=== PATIENT | male | born 1995 | race African-American/Black ===

== ENCOUNTER 2017-09-10 16:40 | Emergency (ER) | payer MEDICAID ==
[~2017-09-10] VITALS: Ht 182.9 cm; Wt 113.4 kg
[2017-09-10] MEDS ORDERED: Methocarbamol 500mg tab ORAL ONE (17:30)
[2017-09-10 18:14] LABS: APPEARANCE,URINE CLEAR; BILIRUBIN, URINE NEGATIVE (NEGATIVE); GLUCOSE, URINE (UA) NEGATIVE (NEGATIVE); KETONES,URINE 1+ (NEGATIVE); LEUKOCYTE ESTERASE ,URINE 1+ (NEGATIVE); NITRITE,URINE NEGATIVE (NEGATIVE); PH,URINE 6 (4.5-8.0); PROTEIN,URINE 1+ (NEGATIVE); UROBILINOGEN,URINE 4 MG/DL (0.0-1.0)
[2017-09-10 18:17] LABS: COLOR,URINE YELLOW
--- NOTE | 2017-09-10 18:18 | Emergency Room Report ---
History of Present Illness General Chief Complaint: Back Pain-No Injury Source: Patient Present Illness HPI 21-year-old male patient presents ER complaining of low back pain for the past week. Denies recent injury. Denies radiation of symptoms. Denies bowel or bladder incontinence. Denies fever, chest pain, shortness of breath. Denies history of kidney stones. Also complains of right lower quadrant abdominal pain that is occurs with movement. Denies. Denies dysuria, hematuria. Denies penile discharge. Denies penile pain or testicular pain or swelling. Denies other acute symptoms. Denies fever, chest pain, shortness of breath. Denies recent sexual activity. Allergies: Coded Allergies: No Known Allergies (Unverified , 09/10/17) Patient History Reviewed Nursing Documentation: PMH: Agreed; PSxH: Agreed Nursing Documentation-PMH Past Medical History: No Stated History Review of Systems All Other Systems: negative except mentioned in HPI Physical Exam Vital Signs Date Time Temp Pulse Resp B/P (MAP) Pulse Ox O2 Delivery O2 Flow Rate FiO2 09/10/17 16:52 97.6 77 18 125/78 97 Room Air 97.5 Sp02 EP Interpretation: reviewed, normal General Appearance: well appearing, no apparent distress, alert, GCS 15, non- toxic Head: normocephalic, atraumatic Eyes: bilateral eye normal inspection, bilateral eye PERRL ENT: hearing grossly normal, normal pharynx, no angioedema, normal voice, uvula midline, moist mucus membranes Neck: full range of motion Respiratory: lungs clear, normal breath sounds, no rhonchi, no respiratory distress, no accessory muscle use, no wheezing, speaking full sentences Cardiovascular #1: regular rate, rhythm, no edema Gastrointestinal: non tender, soft, no mass, non-distended, no guarding, no rebound, other - negative Rovsing, negative obturator, negative heel strike Genitourinary: no CVA tenderness Musculoskeletal: back normal, digits/nails normal, gait/station normal, normal range of motion, other - no bony depression, no spinous process tenderness, tender - lumbosacral tenderness to palpation Neurologic: alert, oriented x3, responsive, motor strength/tone normal, SLR negative, sensory intact Psychiatric: mood/affect normal Skin: no rash Lymphatic: no adenopathy Medical Decision Making PA Attestation Dr. Kingston is my supervising Physician whom patient management has been discussed with. Diagnostic Impression: Primary Impression: Back pain ER Course Pt presents to ED c/o back pain. DDX considered but are not limited to sprain, strain, cauda equina, epidural abscess, spinal cord compression, kidney stones. Low suspicion for cauda equina, no bowel or bladder incontinence or retention. VITAL SIGNS are WNL, patient is afebrile Ordered pain medication, labs. ER COURSE: Pain medication provided. patient has right lower quadrant pain however is afebrile, denies fever, nausea , vomiting, negative Rovsing, negative obturator, negative heel strike low suspicion for appendicitis does not require workup at this time or imaging. Pain may be related to muscle strain or other underlying etiology follow-up with primary care provider. Low suspicion for kidney stones patient denies pain with urination, no occult hematuria. does not require imaging. UA unremarkable low suspicion for UTI patient is symptomatic, does not require treatment with antibiotics at this time. pain likely musculoskeletal in nature, no focal neural deficits, denies radiation of pain, likely muscle spasm will provide treatment. No recent trauma , patient does not require imaging at this time. Instructed on stretching and exercises to strengthen muscles. ER precautions given,return ER for new or worsening of symptoms. Followup with pain management and/or PT. Request referral from PCP. Followup with PCP for further MRI and/or CT imaging as needed. DISCHARGE: -Rx provided for Tylenol -Rx provided for Lidocaine patch -Rx provided for Robaxin. SE may cause drowsiness, do not take prior to drinking , driving, or operating [employer] machinery. At this time pt. is stable for d/c to home. At this time patient is resting comfortably, in no acute distress, nontoxic appearing, smiling and talking without difficulty. Will provide printed patient care instructions, and any necessary prescriptions. Patient instructed to follow with primary care provider for further treatment and referral as needed. Care plan and follow up instructions have been discussed with the patient prior to discharge. Patient reports understanding and agreement to treatment plan. Patient questions asked and answered. ER precautions given, patient instructed to return to ER immediately for any new or worsening of symptoms. - Please note that this Emergency Department Report was dictated using [employer] counselor technology software, occasionally this can lead to erroneous entry secondary to interpretation by the dictation equipment. Labs Test 09/10/17 17:55 Urine Color Yellow Urine Appearance Clear Urine pH 6 (4.5-8.0) Urine Specific [place] 1.020 (1.005-1.035) Urine Protein 1+ (NEGATIVE) Urine Glucose (UA) Negative (NEGATIVE) Urine Ketones 1+ (NEGATIVE) Urine Occult Blood Negative (NEGATIVE) Urine Nitrite Negative (NEGATIVE) Urine Bilirubin Negative (NEGATIVE) Urine Urobilinogen 4 MG/DL (0.0-1.0) Urine Leukocyte Esterase 1+ (NEGATIVE) Urine RBC 0-2 /HPF (0 - 0) Urine WBC 2-4 /HPF (0 - 0) Urine Squamous Epithelial Cells None /LPF (NONE/OCC) Urine Bacteria Few /HPF (NONE) Last Vital Signs Date Time Temp Pulse Resp B/P (MAP) Pulse Ox O2 Delivery O2 Flow Rate FiO2 09/10/17 17:59 97.6 09/10/17 16:52 77 18 125/78 97 Room Air Disposition: HOME, SELF-CARE Condition: Stable Scripts Lidocaine (Lidocaine) 1 Each Adh..patch 700 MG TP DAILY for 7 Days, #7 PATCH Prov: Dat Aburto 09/10/17 Methocarbamol* (ROBAXIN*) 500 Mg Tablet 500 MG PO TID, #21 TAB 0 Refills Prov: Dat Aburto 09/10/17 Ibuprofen* (MOTRIN*) 600 Mg Tablet 600 MG ORAL Q8H PRN for For Pain, #30 TAB 0 Refills Prov: Dat Aburto 09/10/17 Patient Instructions: Abdominal Pain, Adult, [id number], Back Pain, Adult Additional Instructions: Patient instructed to follow up with primary care provider 3-5 and discuss further referral and imaging at that time. Patient instructed on rest, ice and heat. Do not take muscle relaxant prior to drinking, driving, or operating heavy machinery. Drink plenty of water. Take medications as directed. Patient questions asked and answered. ER precautions given, patient instructed to return to ER immediately for any new or worsening of symptoms. Dat Aburto Sep 10, 2017 18:18
[2017-09-10] MEDS ORDERED: LIDOCAINE700 M1 TP (18:43)
[2017-09-10] MEDS ORDERED: IBUPROFEN600 MG ORAL (18:43)
[2017-09-10] MEDS ORDERED: ROBAXIN500 MG PO (18:43)
[2017-09-10 18:58] VITALS: BP 125/78
[2017-09-10 18:59] VITALS: BP 125/78
== END 2017-09-10 19:07 | disposition home or self-care (01) ==
LOC: EMR 17:42
DX: M54.5 Low back pain (principal); R10.31 Right lower quadrant pain
CPT/HCPCS: 81003; 99284